=== PATIENT | male | born 1950 | race Caucasian/White ===

== ENCOUNTER 2016-05-08 21:49 | Day surgery (SDC) | payer MEDICARE ==
[~2016-05-08] VITALS: Ht 175.3 cm; Wt 127.7 kg
[2016-05-08 21:01] LABS: BASOPHILS 0.3 % (0.0-2.0); EOSINOPHILS 1.2 % (0-7); HEMATOCRIT 37.9 % (42.0-54.0); HEMOGLOBIN 11.1 g/dL (13.5-17.5); IMMATURE GRANULOCYTES 0.2 % (0-5); LYMPHOCYTES 19.8 % (15-50); MCH 29.1 pg (26.0-34.0); MCHC 29.3 g/dL (31.0-37.0); MCV 99.5 fL (80.0-100.0); MEAN PLATELET VOLUME 9.5 fL (7.4-10.4); MONOCYTES 8.1 % (2-11); NEUTROPHILS 70.4 % (40-80); RBC 3.81 10x6/uL (4.20-6.10); RDW 15.5 % (11.5-14.5); WBC 8.6 10x3/uL (4.8-10.8)
[2016-05-08 21:18] LABS: ALBUMIN 2.3 g/dL (3.4-5.0); ANION GAP 11.6 mmol/L (8-16); BILIRUBIN - TOTAL 0.35 mg/dL (0.2-1.3); CALCIUM 8.7 mg/dL (8.5-10.1); CARBON DIOXIDE 30.7 mmol/L (21.0-32.0); CREATININE - SERUM 1.6 mg/dL (0.6-1.3); POTASSIUM - SERUM 4.3 mmol/L (3.5-5.1); PROTEIN - SERUM 7.4 g/dL (6.4-8.2)
[2016-05-08 21:37] LABS: PLATELET COUNT 143 10x3/uL (130-400)
[~2016-05-08 21:49] MED LIST: ARTANE 5 MG TAB5 MG PO; BAYER CHEWABLE81 MG PO; CILOXAN3.5 GM EACH EYE; DAILY MULTIVITA1 TA1 PO; DEPAKOTE ER500 MG PO; DEPAKOTE500 MG PO; DEPO-PROVER150 MG/ML IM; FLUOXETINE20 MG/5 ML PO; GABAPENTIN100 MG PO; HALDOL DECAN50 MG/ML IM; K-TAB10 MEQ PO; KEPPRA500 MG PO; KLONOPIN0.5 MG PO; KLONOPIN1 MG PO; LANTUS SOL100 UNIT/1 SQ; LASIX20 MG PO; LASIX40 MG PO; MACROBID100 MG PO; MEVACOR20 MG PO; MICRO-K10 MEQ PO; MYCOSTATIN 500,05 ML PO; NEURONTIN 300300 MG PO; NOVOLOG100 U/M1 SQ; PROTONIX40 MG PO; PROVERA 5 MG TAB5 MG PO; REMERON15 MG PO; SINEMET 25/1001 TAB PO; TOPROL XL25 MG; TRILEPTAL300 MG PO; VITAMIN D50000 UNIT PO; ZOCOR10 MG PO
[2016-05-08 21:58] LABS: APTT 25.5 SECONDS (22.8-39.4); INR 1.13 (0.85-1.17); PROTIME 14.4 SECONDS (11.6-15.0)
--- NOTE | 2016-05-08 23:20 | NUR ---
PT ARRIVED ON UNIT VIA STRETCHER ESCORTED BY 3 ER NURSES. TRANSFERRED TO BED USING X6 PERSON ASSIST. POSITIONED FOR COMFORT. ELEVATED HEELS WITH PILLOWS. HOB AT 30 DEGREES. WILL START TURN SCHEDULE EVERY 2 HOURS. IV IN RIGHT FOOT PATENT WITH NS INFUSING AT 75 ML / HR. SIDE RAILS UP X3 FOR SAFETY. BED ALARM IN USE.
[2016-05-08] MEDS ORDERED: NOVOLOG100 U/M1 SC (23:57)
[2016-05-08] MEDS ORDERED: LEVOXYL25 MCG PO (23:58)
[2016-05-08] MEDS ORDERED: HEALTHYLAX17 GM PO (23:59)
[2016-05-09] MEDS ORDERED: ATIVAN1 MG PO (00:01)
[2016-05-09] MEDS ORDERED: CALMOSEPTINE OI71 GM TOPICAL (00:04)
[2016-05-09] MEDS ORDERED: PROTONIX40 MG PO (00:05)
[2016-05-09] MEDS ORDERED: GENASYME80 MG PO (00:05)
[2016-05-09] MEDS ORDERED: SILVADENE CREAM50 GM TP (00:06)
[2016-05-09 00:15] VITALS: BP 109/56; Ht 175.3 cm; Wt 127.7 kg
--- NOTE | 2016-05-09 00:54 | NUR ---
ADMISSION ASSESSMENT AND HISTORY COMPLETED. MEDICATION RECONCILIATION COMPLETED USING RECORDS SENT FROM [facility].
[2016-05-09 06:05] LABS: BASOPHILS 0.6 % (0.0-2.0); EOSINOPHILS 1.9 % (0-7); HEMATOCRIT 38.3 % (42.0-54.0); HEMOGLOBIN 11.3 g/dL (13.5-17.5); IMMATURE GRANULOCYTES 0.3 % (0-5); LYMPHOCYTES 18.7 % (15-50); MCHC 29.5 g/dL (31.0-37.0); MCV 98.2 fL (80.0-100.0); MEAN PLATELET VOLUME 9.9 fL (7.4-10.4); MONOCYTES 9.7 % (2-11); NEUTROPHILS 68.8 % (40-80); PLATELET COUNT 148 10x3/uL (130-400); RDW 15.7 % (11.5-14.5); WBC 10.1 10x3/uL (4.8-10.8)
[2016-05-09 06:18] LABS: ANION GAP 11.8 mmol/L (8-16); CALCIUM 8.9 mg/dL (8.5-10.1); CARBON DIOXIDE 30.4 mmol/L (21.0-32.0); CREATININE - SERUM 1.6 mg/dL (0.6-1.3); POTASSIUM - SERUM 4.2 mmol/L (3.5-5.1)
--- NOTE | 2016-05-09 07:00 | NUR ---
REPORT RECIEVED ASSUMED CARE. PATIENT IN BED WITH IV INTACT. NO COMPLAINTS. CALL LIGHT WITHIN REACH.
[2016-05-09 08:41] VITALS: BP 137/78
--- NOTE | 2016-05-09 10:19 | NUR ---
THIS WAS CANCELLED NOT IN OR IN GI LAB.
--- NOTE | 2016-05-09 10:30 | NUR ---
CHARTED ON OR ACCIDENTALLY HAD TO RESCHEDULE FOR GI LAB. CALLED JUSTO IN OR AND REPORTED THIS. SHE TOLD ME TO CALL SCHEDULING AND HAVE IT SCHEDULED FOR GI.
[2016-05-09 11:01] LABS: ALBUMIN 2.4 g/dL (3.4-5.0); ANION GAP 17.1 mmol/L (8-16); CALCIUM 8.8 mg/dL (8.5-10.1); CARBON DIOXIDE 25.1 mmol/L (21.0-32.0); CREATININE - SERUM 1.7 mg/dL (0.6-1.3); MAGNESIUM - SERUM 2.1 mg/dL (1.8-2.4); PHOSPHOROUS 4.1 mg/dL (2.5-4.9); POTASSIUM - SERUM 4.2 mmol/L (3.5-5.1)
--- NOTE | 2016-05-09 11:30 | NUR ---
PATIENT BACK FROM PEG PLACEMENT. PEG INTACT. IV INTACT. VS STABLE. NO SIGNS OF DISTRESS. ABDOMINAL BINDER PLACED. CALL LIGHT WITHIN REACH. WILL CONTINUE TO MONITOR.
--- NOTE | 2016-05-09 15:14 | NUR ---
NUTRITION MONITORING & EVAL CHART REVEIWED. NOTE DC ORDERS. TUBE FEED REC'S 1)JEVITY 1.2 @ 20 CC/HR 2)INCREASE 10 CC/HR Q 8 HOURS TOLERATED TO GOAL RATE 70 CC/R 3)100 CC H2O FLUSH Q [address] FOLLOWING
--- NOTE | 2016-05-09 18:50 | NUR ---
REPORT CALLED TO KE AT [facility]. IV REMOVED WITH CATH TIP INTACT X 2. NO PROBLEMS AT THIS TIME. AWAITING AMBULANCE FOR TRANSPORTATION. CALL LIGHT WITHIN REACH.
--- NOTE | 2016-05-24 09:40 | HP ---
PATIENT: MONO GAONA MEDICAL RECORD: [id number] ACCOUNT: [id number] LOCATION:[place] : 52 ADMISSION DATE: 05/08/16 HISTORY AND PHYSICAL EXAMINATION CHIEF COMPLAINT: Cannot swallow. HISTORY OF PRESENT ILLNESS: We have a paucity of information regarding Mr. Gaona. He is noncommunicative. Reportedly, he has had either a decreased appetite or dysphagia. He has scarring with a dimple in the left upper quadrant, which makes me think that he likely has had a G-tube in the past. He was brought by ambulance from [facility] due to not eating. He is unable to provide me with any information. The patient was recently dismissed from [facility] with aspiration pneumonia 10 days ago. He is a long-term senior care resident. He has reportedly not had a fever since dismissal from the hospital. EKG is reviewed and reveals accelerated junctional rhythm. The junctional rhythm was accelerated at 82. REVIEW OF SYSTEMS: Unreliable and unobtainable due to the severity of his illness. It is unknown whether he has any night sweats, weight loss, or anorexia. It is unknown whether he has any hemoptysis or fever. SOCIAL HISTORY: It is unknown whether he is a smoker. PAST MEDICAL AND SURGICAL HISTORY: Reportedly, he has had epigastric abdominal pain, upper gastrointestinal bleeding and thrombocytopenia. Sleep apnea, hypertension, seizures, schizophrenia, depression, neuropathy, impulse control disorder, mental retardation, Parkinson disease, blindness, advanced Parkinson's, osteoarthritis, history of right craniotomy, chronic renal disease, gastroesophageal reflux and congestive heart failure. ALLERGIES: SEROQUEL. HOME MEDICINES: Carbidopa, Protonix, metoprolol, Depakote, Ativan, medroxyprogesterone, Novolog, Neurontin, Lasix, Keppra, Haldol and simethicone. SOCIAL HISTORY: Nonsmoker. PHYSICAL EXAMINATION: GENERAL: The patient appears acutely ill. Also appears chronically ill. VITAL SIGNS: Reviewed. HEAD: External ears appear normal. EYES: Extraocular movements are intact. NECK: Trachea is midline. CHEST: No intercostal retractions. PULMONARY: Decreased breath sounds in bases. Rales bilaterally. EXTREMITIES: He has pitting edema at the ankles. PSYCHIATRIC: Anxious affect. NEUROLOGIC: Markedly abnormal. Will not respond to commands. BACK: No thoracic kyphosis. INTEGUMENT: Stage I decubitus ulcer overlying the sacrum. LYMPHATICS: No lymphangitic streaking of the exposed extremities. IMPRESSION: 1. Recent history of aspiration pneumonia. HISTORY AND PHYSICAL [id number] MONO GAONA 2. Dysphagia. 3. Feeding problems. PLAN: EGD with PEG placement. TRANSINT:[id number] Voice Confirmation ID: [id number] DOCUMENT ID: [id number] RUTH COBOS MD at 0940 CC: [id number] DICTATION DATE: 05/09/16 1051 [employer] OPERATOR: 05/09/16 1220 [facility] 05/09/16 [facility] [address] [place] [address]
== END 2016-05-09 21:18 | disposition home or self-care (01) ==
LOC: OBSVTIME → D.OPS 21:49 → D.MS 22:14 → D.ER 22:14 → D.MS 22:14 → OBSVTIME 22:14 → EDSTATUS 05-09 10:00 → D.MS 05-09 21:18 → D.OPS 05-09 21:18 → D.MS 05-09 21:18
PROVIDERS: Emergency Medicine; Surgery
DX: R13.10 Dysphagia, unspecified (principal); K29.50 Unspecified chronic gastritis without bleeding; K21.9 Gastro-esophageal reflux disease without esophagitis; E11.22 Type 2 diabetes mellitus with diabetic chronic kidney disease; I13.0 Hypertensive heart and chronic kidney disease with heart failure and stage 1 through stage 4 chronic kidney disease, or unspecified chronic kidney disease; N18.9 Chronic kidney disease, unspecified; I50.9 Heart failure, unspecified; G47.30 Sleep apnea, unspecified; R56.9 Unspecified convulsions; F20.9 Schizophrenia, unspecified; F32.9 Major depressive disorder, single episode, unspecified; D69.6 Thrombocytopenia, unspecified; E11.40 Type 2 diabetes mellitus with diabetic neuropathy, unspecified; F79 Unspecified intellectual disabilities; G20 Parkinson's disease; M19.90 Unspecified osteoarthritis, unspecified site; Z79.4 Long term (current) use of insulin; Z79.899 Other long term (current) drug therapy; Z88.8 Allergy status to other drugs, medicaments and biological substances